=== PATIENT | female | born 1975 | race Two or more races ===

== ENCOUNTER 2020-07-13 22:41 | Emergency (ER) | payer MEDICAID ==
[~2020-07-13] VITALS: Ht 152.4 cm; Wt 72.3 kg
[~2020-07-13 22:41] MED LIST: IRON1TAB60 PO
[2020-07-14 00:51] VITALS: BP 131/95
--- NOTE | 2020-07-14 00:55 | NUR ---
WALKED TO TRAUMA 1 WITH FAMILY, RESULTS REVIEWED WITH FAMILY AND PT BY SALVADOR MESA
== END 2020-07-14 01:30 | disposition home or self-care (01) ==
LOC: ED 07-14 01:07
DX: S20.219A Contusion of unspecified front wall of thorax, initial encounter (principal); V49.59XA Passenger injured in collision with other motor vehicles in traffic accident, initial encounter; Y93.89 Activity, other specified; Y92.488 Other paved roadways as the place of occurrence of the external cause; Y99.8 Other external cause status
CPT/HCPCS: 71046; 99283

== ENCOUNTER 2021-05-15 14:12 | Emergency (ER) | payer MEDICAID ==
[~2021-05-15] VITALS: Ht 152.4 cm; Wt 71.0 kg
[2021-05-15] MEDS ORDERED: KETOROLAC 30 MG/1 ML IM ONE (14:30)
[2021-05-15] MEDS ORDERED: METHOCARBAMOL 750 MG TABLET PO ONE ×2 (14:30→16:00)
[2021-05-15 15:48] VITALS: BP 150/99
[2021-05-15] MEDS ORDERED: KETOROLAC 30 MG/1 ML ONE (15:50)
[2021-05-15] MEDS ORDERED: METHOCARBAMOL 750 MG TABLET ONE (15:50)
[2021-05-15] MEDS ORDERED: HYDROcodone/APAP 5/325 TABLET ONE (15:56)
[2021-05-15] MEDS ORDERED: HYDROcodone/APAP 5/325 TABLET PO ONE (16:00)
== END 2021-05-15 16:32 | disposition home or self-care (01) ==
LOC: ED 16:25
DX: S39.012A Strain of muscle, fascia and tendon of lower back, initial encounter (principal); X58.XXXA Exposure to other specified factors, initial encounter; Y93.89 Activity, other specified; Y92.89 Other specified places as the place of occurrence of the external cause; Y99.8 Other external cause status
CPT/HCPCS: 96372; 99283; J1885